=== PATIENT | female | born 1980 | race African-American/Black ===

== ENCOUNTER 2018-08-29 12:30 | Emergency (ER) | payer BC ==
[2018-08-29 13:04] VITALS: BMI 31.3
[2018-08-29 15:36] LABS: BASO % 0.5 % (0-2.0); EOS % 1.4 % (0-4.5); HEMATOCRIT 34.7 % (32.4-45.2); HEMOGLOBIN 12.1 GM/dL (10.7-15.3); LYMPH % 26.8 % (8-40); MCH 31.1 pg (25.7-33.7); MEAN CELL VOLUME 88.9 fl (80-96); MEAN PLT VOLUME 8.3 fl (7.5-11.1); MONO % 5.9 % (3.8-10.2); NEUT % 65.4 % (42.8-82.8); PLATELET COUNT 192 K/MM3 (134-434); RDW 13.5 % (11.6-15.6); WHITE BLOOD COUNT 4.3 K/mm3 (4.0-10.0)
--- NOTE | 2018-08-29 15:53 | PDOC ---
History of Present Illness - General Chief Complaint: Vaginal Bleeding Stated Complaint: VAGINAL BLEED Time Seen by Provider: 08/29/18 14:36 - History of Present Illness Initial Comments: 08/29/18 15:48 The patient is a 37 y/o F, , @ 15 weeks 6 days, with a history of ectopic pregnancies and miscarriages (last miscarriage 2017), who presents to the emergency department with 1 day of vaginal spotting. Pt denies any abdominal pain. Denies any cramps. Notes that she only sees a small amount of blood when she wipes. Has not even soaked through one pad today. Last OBGYN visit was at 9 weeks with ultrasound confirmation. Next OBGYN visit, next week. She denies recent fevers, chills, headache or dizziness. She denies recent nausea, vomit, diarrhea or constipation. She denies recent dysuria, frequency, urgency or hematuria. She denies recent chest pain or shortness of breath. Allergies: NKDA Past surgical history: D&C. Past History - Past Medical History Allergies/Adverse Reactions: Allergies Allergy/AdvReac Type Severity Reaction Status Date / Time No Known Allergies Allergy Verified 08/29/18 13:01 Home Medications: Ambulatory Orders Prenat 115/Iron Fum/Folic/Dss [ 19 Tablet] 1 each PO DAILY 08/29/18 COPD: No - Reproductive History Is Patient Now?: Yes (#): 10 Para: 3 Ectopic : Yes (x2) Spontaneous : 1 - Suicide/Smoking/Psychosocial Hx Smoking History: Never smoked Information on smoking cessation initiated: No Review of Systems - Review of Systems Comments:: 08/29/18 15:50 GENERAL/CONSTITUTIONAL: No fever or chills. No weakness. HEAD, EYES, EARS, NOSE AND THROAT: No change in vision. No ear pain or discharge. No sore throat. CARDIOVASCULAR: No chest pain, no shortness of breath, no loss of consciousness RESPIRATORY: No cough, wheezing, or hemoptysis. GASTROINTESTINAL: No nausea, vomiting, diarrhea or constipation. +GENITOURINARY: Vaginal bleeding. No dysuria, frequency, or change in urination. MUSCULOSKELETAL: No joint or muscle swelling or pain. No neck or back pain. SKIN: No rash NEUROLOGIC: No vertigo, no change in strength/sensation. ENDOCRINE: No increased thirst. No abnormal weight change. HEMATOLOGIC/LYMPHATIC: No anemia, easy bleeding, or history of blood clots. ALLERGIC/IMMUNOLOGIC: No hives or skin allergy. *Physical Exam - Vital Signs Last Vital Signs Temp Pulse Resp BP Pulse Ox 82 18 106/72 100 08/29/18 13:03 08/29/18 13:03 08/29/18 13:03 08/29/18 13:03 - Physical Exam Comments: 08/29/18 15:51 "GENERAL: Awake, alert, and fully oriented, in no acute distress. HEAD: No signs of trauma EYES: PERRLA, EOMI, sclera anicteric, conjunctiva clear ENT: Auricles normal inspection, hearing grossly normal, nares patent, oropharynx clear without exudates. Moist mucosa NECK: Nontender, no stepoffs, Normal ROM, supple, no lymphadenopathy, JVD, or masses LUNGS: Breath sounds equal, clear to auscultation bilaterally. No wheezes, and no crackles HEART: Regular rate and rhythm, normal S1 and S2, no murmurs, rubs or gallops ABDOMEN: Soft, nontender, normoactive bowel sounds. No guarding, no rebound. No masses EXTREMITIES: Normal range of motion, no edema. No clubbing or cyanosis. No cords, erythema, or tenderness NEUROLOGICAL: Cranial nerves II through XII intact. 5/5 strength and sensation in all extremities, Normal speech, normal gait, normal cerebellar function SKIN: Warm, Dry, normal turgor, no rashes or lesions noted. : os closed, scant blood in vault, no CMT, no adnexal tenderness or masses Moderate Sedation - Procedure Monitoring Vital Signs: Procedure Monitoring Vital Signs Temperature Pulse Rate 82 08/29/18 13:03 Respiratory Rate 18 08/29/18 13:03 Blood Pressure 106/72 08/29/18 13:03 O2 Sat by Pulse Oximetry (%) 100 08/29/18 13:03 ED Treatment Course - LABORATORY CBC & Chemistry Diagram: 08/29/18 15:16 08/29/18 15:16 - ADDITIONAL ORDERS Additional order review: 08/29/18 15:16 RBC 3.90 MCV 88.9 MCHC 35.0 RDW 13.5 MPV 8.3 Neutrophils % 65.4 Lymphocytes % 26.8 Monocytes % 5.9 Eosinophils % 1.4 Basophils % 0.5 - RADIOLOGY Radiology Studies Ordered: Category Date Time Status LIMITED US [US] Stat Ultrasound 08/29/18 14:51 Ordered Medical Decision Making - Medical Decision Making 08/29/18 15:52 37 F, , @ approx 16 weeks, presenting with vaginal bleeding. Pt has h/o miscarriages in the past. - Labs, HCG, T&S - TVUS 08/29/18 17:35 Labs wnl TVUS with viable , normal HR and amniotic fluid Blood type O+ *DC/Admit/Observation/Transfer Diagnosis at time of Disposition: Vaginal bleeding before 22 weeks gestation - Discharge Dispostion Disposition: HOME - Referrals - Patient Instructions Printed Discharge Instructions: DI for Vaginal Bleeding During Additional Instructions: Please follow up with your OB within 1 week for further evaluation. If you experience worsening bleeding, abdominal pain, fevers, or any other concerning symptoms, return to the ER immediately. - Post Discharge Activity - Attestations Physician Attestion: 08/29/18 17:36 I, Dr. Alexandru Alejandro MD, attest that this document has been prepared under my direction and personally reviewed by me in its entirety. I further attest, that it accurately reflects all work, treatment, procedures and medical decision -making performed by me.
[2018-08-29 16:38] LABS: ALBUMIN 3.3 g/dl (3.4-5.0); ALK PHOS 50 U/L (45-117); ANION GAP 5 MMOL/L (8-16); BILIRUBIN,TOTAL 0.5 mg/dL (0.2-1); BLOOD UREA NITROGEN 7 mg/dL (7-18); CALCIUM 8.7 mg/dL (8.5-10.1); CHLORIDE 106 mmol/L (98-107); CO2 26 mmol/L (21-32); CREATININE 0.7 mg/dL (0.55-1.3); GLUCOSE,RANDOM 75 mg/dL (74-106); SGOT/AST 10 U/L (15-37); SGPT/ALT 17 U/L (13-61); SODIUM 137 mmol/L (136-145); TOT PROT 7.3 g/dl (6.4-8.2)
[2018-08-29 17:17] LABS: URINE APPEARANCE SLCLOUDY; URINE BILIRUBIN NEGATIVE (<2.0 mg/dL); URINE COLOR LTYELLOW; URINE GLUCOSE (UA) NEGATIVE (NEGATIVE); URINE KETONE NEGATIVE (NEGATIVE); URINE LEUK ESTERASE NEGATIVE (NEGATIVE); URINE NITRITE NEGATIVE (NEGATIVE); URINE PROTEIN NEGATIVE (NEGATIVE); URINE UROBILINOGEN NEGATIVE mg/dL (0.2-1.0)
[2018-08-29 17:32] VITALS: BP 108/66; PULSE 74
[2018-08-29 18:36] LABS: EPI CELLS MODERATE /HPF (FEW); URINE MUCUS RARE
== END 2018-08-29 17:46 | disposition home or self-care (01) ==
LOC: JER 12:30
DX: O26.892 Other specified pregnancy related conditions, second trimester (principal); O20.8 Other hemorrhage in early pregnancy; Z3A.16 16 weeks gestation of pregnancy
CPT/HCPCS: 36415; 76815-TC; 80053; 81003; 81015; 84702; 85025; 86850; 86900; 86901; 87086; 99282-25

== ENCOUNTER 2022-10-14 00:49 | Emergency (ER) | payer BC ==
[2022-10-14 00:54] VITALS: BP 160/90; PULSE 85; RESP 17; TEMP 97.6; BMI 29.8
== END 2022-10-14 01:47 | disposition home or self-care (01) ==
LOC: JER 00:49
PROC: 093K7ZZ Control Bleeding in Nasal Mucosa and Soft Tissue, Via Natural or Artificial Opening (ICD-10-PCS; principal; 2022-10-14)
DX: R04.0 Epistaxis (principal)
CPT/HCPCS: 99283-25